=== PATIENT | male | born 1940 | race American Indian/Alaskan Native ===

== ENCOUNTER 2016-05-08 15:06 | Outpatient (CLI) | payer BC ==
[2016-05-08 15:48] LABS: Blood Urea Nitrogen 14 mg/dL (9-20)
[2016-05-08] MEDS ORDERED: NACL ONE (16:09)
--- NOTE | 2016-05-08 17:33 | Cat Scan Report ---
FINAL REPORT EXAM: CT CHEST W CON HISTORY: Persistent COUGH. SOB after stents for a few years TECHNIQUE: Standard enhanced CT of the chest at 2.5 millimeter and 1.25 millimeter axial increments. Coronal and sagittal reconstruction was also obtained. PRIORS: None. FINDINGS: There is a nonspecific 5 mm nodule in the lateral left lower lobe (coronal image 98). There is an elongated nodule in the right middle lobe laterally measuring 8 x 3 mm (coronal image 51). There is a 3 mm nodule in the lateral right upper lobe (axial image 11). Linear stranding in the left base is likely atelectasis versus fibrosis. There is a also a small bulla in the left lower lobe medially. Otherwise, the lung parenchyma are expanded and clear with no evidence for parenchymal infiltrates, vascular congestion, pleural effusion, or pneumothorax. There is no evidence for mediastinal, hilar, or axillary adenopathy. Mediastinal silhouette is normal. The esophagus is collapsed. The trachea is midline. Cardiovascular structures are within normal limits. Cardiac size and aorta are normal. There is a normal variant common origin of the left common carotid artery and innominate artery off the arch of the aorta. Images through the lung bases include upper abdomen which show a large rounded low-density cyst in the upper pole right kidney measuring 4.4 x 4.0 cm (axial image 206, series 2). A smaller exophytic low-density cyst off the lateral midpole left kidney measures 1.3 x 1.5 cm (axial image 239, series 2). There is also calcification noted at the origin of both the celiac and superior mesenteric arteries. Bony structures show no focal abnormalities. No evidence for bony fracture is seen. Degenerative changes in the thoracic spine are noted. IMPRESSION: 1. Multiple nonspecific nodules identified in the left lower lobe, a right middle lobe, and right upper lobe. These should be followed with CT in 6 months unless the patient is high risk (history of smoking or primary neoplasm). In the latter instance, short-term follow-up CT in 3 months is recommended. 2. Bilateral renal cysts
== END 2016-05-08 15:07 | disposition home or self-care (01) ==
LOC: CT 15:06
PROVIDERS: ATTEND Specialist
DX: N28.1 Cyst of kidney, acquired (principal); R91.1 Solitary pulmonary nodule; M47.894 Other spondylosis, thoracic region; J43.8 Other emphysema; I10 Essential (primary) hypertension; E11.9 Type 2 diabetes mellitus without complications
CPT/HCPCS: 36415; 71260; 82565; 84520; Q9967

== ENCOUNTER 2016-08-21 13:02 | Outpatient (CLI) | payer BC ==
[2016-08-21 13:24] LABS: Basophils % (Auto) 0.8 % (0.0-1.8); Eosinophils % (Auto) 5.6 % (0.0-4.3); Hematocrit 41.3 % (35.5-45.6); Hemoglobin 13.7 gm/dl (11.8-15.2); Mean Corpuscular HGB Conc 33 % (32-34); Mean Corpuscular Hemoglobin 29 pg (28-32); Mean Corpuscular Volume 87 fl (84-94); Platelet Count 189 K/mm3 (140-440); Red Blood Count 4.74 M/mm3 (3.65-5.03); White Blood Count 5.1 K/mm3 (4.5-11.0)
[2016-08-21 13:44] LABS: Alanine Aminotransferase 28 units/L (7-56); Albumin 4.2 g/dL (3.9-5); Albumin/Globulin Ratio 1.3 %; Alkaline Phosphatase 63 units/L (35-129); Anion Gap 16 mmol/L; Bilirubin,Total 1.1 mg/dL (0.1-1.2); Blood Urea Nitrogen 12 mg/dL (9-20); Calcium 9.2 mg/dL (8.4-10.2); Carbon Dioxide 25 mmol/L (22-30); Cholesterol 137 mg/dL (50-199); Glucose 92 mg/dL (75-100); HDL Cholesterol 40 mg/dL (40-59); LDL Cholesterol,Direct 79 mg/dL (50-130); Potassium 4.1 mmol/L (3.6-5.0); Sodium 138 mmol/L (137-145); Total Protein 7.4 g/dL (6.3-8.2); Triglycerides 91 mg/dL (2-149)
== END 2016-08-21 13:03 | disposition home or self-care (01) ==
LOC: LAB 13:02
PROVIDERS: ATTEND Internal Medicine
DX: Z12.11 Encounter for screening for malignant neoplasm of colon (principal); Z00.01 Encounter for general adult medical examination with abnormal findings; R97.20 Elevated prostate specific antigen [PSA]
CPT/HCPCS: 36415; 80053; 80061; 84153; 84443; 85025

== ENCOUNTER 2016-08-25 12:48 | Outpatient (CLI) | payer BC | END 2016-08-25 12:49 | disposition home or self-care (01) | LOC: LAB 12:48 | PROVIDERS: ATTEND Internal Medicine | DX: Z12.11 Encounter for screening for malignant neoplasm of colon (principal); Z00.00 Encounter for general adult medical examination without abnormal findings; R97.20 Elevated prostate specific antigen [PSA] | CPT/HCPCS: 82270 ==

== ENCOUNTER 2016-12-01 10:10 | Outpatient (CLI) | payer BC ==
[2016-12-01] MEDS ORDERED: NACL ONE (12:27)
[2016-12-01 12:33] LABS: Blood Urea Nitrogen 11 mg/dL (9-20)
--- NOTE | 2016-12-01 16:28 | Cat Scan Report ---
CT chest with contrast: Followup pulmonary nodule. Comparison made to prior exam May 08, 2016. Following IV contrast menstruation transverse images are obtained through the chest into the upper abdomen with coronal and sagittal 2-D reformatted images. 2 rounded nodules are identified in the right lung. In the upper lobe it measures 4 mm on image 92, and on image 120 measures 5.4 mm. An irregular density is identified on image 102 measures 8.2 mm. These are all unchanged from prior scan. Linear stranding is again identified in the lower lobes bilaterally most likely representing atelectasis or possible scar. Several small scattered cysts are identified in the lower lobes posteriorly bilaterally. No hilar or mediastinal adenopathy. The central airways are patent. There is heavy vascular calcification involving left coronary vessels. There are stable bilateral renal cysts. There is diffuse degenerative spondylosis in the visualized thoracic and lumbar bodies. Impression: 1. Stable right pulmonary nodules. 2. Stable bilateral renal cysts. 3. Heavy load of left coronary vascular calcification. Recommendation: Repeat scan in one year to confirm stability of these findings.
== END 2016-12-01 10:11 | disposition home or self-care (01) ==
LOC: CT 10:10
PROVIDERS: ATTEND Specialist
DX: J98.4 Other disorders of lung (principal); R91.8 Other nonspecific abnormal finding of lung field; N28.1 Cyst of kidney, acquired; N50.82 Scrotal pain; I25.10 Atherosclerotic heart disease of native coronary artery without angina pectoris; M47.895 Other spondylosis, thoracolumbar region
CPT/HCPCS: 36415; 71260; 82565; 84153; 84520; Q9967

== ENCOUNTER 2016-12-29 11:28 | Outpatient (CLI) | payer BC ==
--- NOTE | 2016-12-29 12:50 | Ultrasound Report ---
ULTRASOUND SCROTAL INDICATION: Scrotal pain, left-sided scrotal mass. COMPARISON: None similar. FINDINGS: Longitudinal and transverse grayscale and color flow sonographic evaluation of the scrotum and its contents demonstrates normal testicular contour and echotexture bilaterally without suspicious intrinsic lesions. Preserved bilateral blood flow. Right testicle estimated at 4.4 x 1.8 x 3.1 cm while the left testicle is 4.4 x 1.8 x 3 cm. Small bilateral hydroceles with few low-level intrinsic echoes. Approximately 0.9 cm right epididymis demonstrates few small intrinsic adjacent cysts, individually measuring to the order of 2-3 mm as on images 13-16. Left epididymis also approximately 0.9 cm and demonstrates a 1.5 x 1 cm cyst superiorly as on axial images 31-33. Small varicocele on the right possible. CONCLUSION: Small bilateral hydroceles and epididymal head cysts without acute testicular sonographic abnormality, as described. Thank you for the opportunity to participate in this patient's care.
== END 2016-12-29 11:29 | disposition home or self-care (01) ==
LOC: US 11:28
PROVIDERS: ATTEND Urology
DX: N50.3 Cyst of epididymis (principal); N50.89 Other specified disorders of the male genital organs; N43.3 Hydrocele, unspecified; R91.1 Solitary pulmonary nodule; I10 Essential (primary) hypertension
CPT/HCPCS: 93975

== ENCOUNTER 2017-04-02 12:46 | Outpatient (CLI) | payer BC ==
[2017-04-02 13:56] LABS: Alanine Aminotransferase 25 units/L (7-56); Albumin/Globulin Ratio 1.1 %; Alkaline Phosphatase 61 units/L (35-129); BUN/Creatinine Ratio 12; Blood Urea Nitrogen 13 mg/dL (9-20); Calcium 8.9 mg/dL (8.4-10.2); Carbon Dioxide 25 mmol/L (22-30); Cholesterol 134 mg/dL (50-199); Glucose 94 mg/dL (75-100); HDL Cholesterol 41 mg/dL (40-59); LDL Cholesterol,Direct 76 mg/dL (50-130); Total Protein 7.5 g/dL (6.3-8.2); Triglycerides 89 mg/dL (2-149)
[2017-04-02 13:57] LABS: Anion Gap 19 mmol/L; Chloride 104.6 mmol/L (98-107); Potassium 4.3 mmol/L (3.6-5.0); Sodium 144 mmol/L (137-145)
== END 2017-04-02 12:47 | disposition home or self-care (01) ==
LOC: LAB 12:46
PROVIDERS: ATTEND Internal Medicine
DX: I10 Essential (primary) hypertension (principal); E78.2 Mixed hyperlipidemia; N40.0 Benign prostatic hyperplasia without lower urinary tract symptoms
CPT/HCPCS: 36415; 80053; 80061; 84153

== ENCOUNTER 2017-08-20 08:38 | Outpatient (CLI) | payer BC ==
--- NOTE | 2017-08-21 00:57 | Treadmill Report ---
THALLIUM STRESS TEST LEFT VENTRICLE: Left ventricular chamber size is within normal. Perfusion study demonstrates a small fixed basal inferior defect, no significant reversible defects identified. Gated analysis demonstrates left ventricular systolic function at the lower limits of normal, ejection fraction 49%. CONCLUSION: Small fixed basal inferior defect likely secondary to diaphragmatic attenuation artifact. There is no ischemia demonstrated on this study. Negative study. JOB# [id number] CA/NTS
== END 2017-08-20 08:39 | disposition home or self-care (01) ==
LOC: ECHO 08:38
PROVIDERS: ATTEND Internal Medicine Cardiovascular Disease
DX: I10 Essential (primary) hypertension (principal); I51.7 Cardiomegaly
CPT/HCPCS: 78452; 93017; 93306; A9502

== ENCOUNTER 2017-12-18 10:25 | Outpatient (CLI) | payer BC | END 2017-12-18 10:26 | disposition home or self-care (01) | LOC: LAB 10:25 | PROVIDERS: ATTEND Urology | DX: N40.0 Benign prostatic hyperplasia without lower urinary tract symptoms (principal); I10 Essential (primary) hypertension; I25.10 Atherosclerotic heart disease of native coronary artery without angina pectoris; K21.9 Gastro-esophageal reflux disease without esophagitis | CPT/HCPCS: 36415; 84153 ==